=== PATIENT | male | born 1990 | race Caucasian/White ===

== ENCOUNTER 2016-09-16 16:32 | Outpatient (CLI) | END 2016-09-16 16:33 | disposition home or self-care (01) | LOC: LAB 16:32 | PROVIDERS: ATTEND Nurse Practitioner Family | DX: R30.9 Painful micturition, unspecified (principal) | CPT/HCPCS: 87800 ==

== ENCOUNTER 2017-01-31 21:02 | Emergency (ER) ==
[2017-01-31] MEDS ORDERED: EYE-STREAM OP STA (21:10)
[2017-01-31] MEDS ORDERED: TETRACAINE 0.5% UNIT-DOSE OP STA (21:10)
[2017-01-31] MEDS ORDERED: FLUORETS OP STA (21:10)
[2017-01-31 21:21] VITALS: BP 120/79; TEMP 98.6; BMI 19.6
--- NOTE | 2017-01-31 21:31 | ED.PDOC ---
General ED Provider: Dr. ALISHA FORD-ER Chief Complaint: Eye Problem Stated Complaint: i was cutting wood and i got something in my eye Time Seen by Physician: 21:29 Mode of Arrival: Walk-In Information Source: Patient Exam Limitations: No limitations Primary Care Provider: ALLISON SANCHEZ Nursing and Triage Documentation Reviewed and Agree: Yes EENT Complaint Exam - Eye Complaint/Exam Onset/Duration: 2hrs Symptoms Are: Still present Timing: Constant Initial Severity: Mild Current Severity: Mild Location: Left Character: Reports: Dull, Throbbing, Foreign body sensation Aggravating: Reports: Blinking Alleviating: Reports: None Associated Signs and Symptoms: Reports: Clear drainage. Denies: Photophobia, Purulent drainage, Vision impairment, Fever, Swelling Eye Surgical History: Reports: None Penetrating Injury Risk Factors: None Globe Rupture Risk Factors: None Acute Glaucoma Risk Factors: None Optic Artery Occlusion Risk Factors: None Visual Field: Normal Extraocular Movement: Normal Orbit Findings: Normal Globe Findings: Intact Lid Findings: Normal Conjunctival Findings: Red Corneal Findings: Clear Fluorescein Uptake: Yes Fundi: Normal Slit Lamp Used: No Differential Diagnoses: Corneal Abrasion, Foreign Body Review of Systems - Review Of Systems Constitutional: Reports: No symptoms Eyes: Reports: Drainage, Foreign body sensation, Inflammation, Pain Ears, Nose, Mouth, Throat: Reports: No symptoms Respiratory: Reports: No symptoms Cardiac: Reports: No symptoms GI: Reports: No symptoms : Reports: No symptoms Musculoskeletal: Reports: No symptoms Skin: Reports: No symptoms Neurological: Reports: No symptoms Endocrine: Reports: No symptoms Hematologic/Lymphatic: Reports: No symptoms All Other Systems: Reviewed and Negative Past Medical History - Past Medical History Previously Healthy: Yes Endocrine: Reports: Unknown Cardiovascular: Reports: Unknown Respiratory: Reports: Unknown Hematological: Reports: Unknown Gastrointestinal: Reports: Unknown Genitourinary: Reports: Unknown Neuro/Psych: Reports: Unknown Musculoskeletal: Reports: Unknown Cancer: Reports: Unknown - Surgical History General Surgical History: Reports: Unknown - Family History Family History: Reports: Unknown - Social History Smoking Status: Current every day smoker, Heavy tobacco smoker Hx Substance Use: No (smokes marijuane) Alcohol Screening: None - Immunizations Tetanus Shot up to Date: No (unknown) Physical Exam - Physical Exam Appearance: Well-appearing, No pain distress, Well-nourished Eyes: WALLACE, EOMI, Conjunctiva inflammed ENT: Ears normal Neck: Supple Respiratory: Airway patent Cardiovascular: RRR GI/: Soft, Nontender, No masses, Bowel sounds normal, No Organomegaly Musculoskeletal: Normal strength, ROM intact, No edema, No calf tenderness Skin: Warm, Dry, Normal color Neurological: Sensation intact Psychiatric: Affect appropriate, Mood appropriate Critical Care Note - Critical Care Note Total Time (mins): 0 Course - Course Orders, Labs, Meds: Orders Category Date Time Status Balanced Salt Solution [Eye-Stream] MEDS 01/31/17 21:10 Discontinued 1 bottle OP ONCE STA Fluorescein Sodium [Fluorets] MEDS 01/31/17 21:10 Discontinued 1 strip OP ONCE STA Tetracaine HCl/Pf [Tetracaine 0.5% Unit-Dose] MEDS 01/31/17 21:10 Discontinued 2 drop OP ONCE STA Medications Discontinued Medications Generic Name Dose Route Start Last Admin Trade Name Freq PRN Reason Stop Dose Admin Eye Irrigation Solution 1 bottle 01/31/17 21:10 Eye-Stream OP 01/31/17 21:11 ONCE STA Fluorescein Sodium 1 strip 01/31/17 21:10 Fluorets OP 01/31/17 21:11 ONCE STA Tetracaine HCl 2 drop 01/31/17 21:10 Tetracaine 0.5% Unit-Dose OP 01/31/17 21:11 ONCE STA Vital Signs: Temp Pulse Resp BP Pulse Ox 01/31/17 21:04 98.6 F 131 H 20 120/79 95 Departure - Departure Time of Disposition: 21:38 Disposition: HOME SELF-CARE Discharge Problem: Corneal abrasion Qualifiers: Encounter type: initial encounter Laterality: left Qualified Code(s): S05.02XA - Injury of conjunctiva and corneal abrasion without foreign body, left eye, initial encounter Instructions: Corneal Abrasion (ED) Condition: Good Pt referred to PMD for follow-up: Yes Additional Instructions: keep eye patched--norco 7.5mg q 4hrs prn pain #6--reapply ointment in am and reapply the patch--see eye doctor tomorrow as we discussed Allergies/Adverse Reactions: Allergies No Known Allergies Allergy (Verified 01/31/17 21:13) Home Medications: Ambulatory Orders Acyclovir 500 mg PO PRN PRN 09/16/16 Clonazepam [Klonopin] 1 mg PO BID PRN 09/16/16 Disposition Discussed With: Patient, Family
[2017-01-31] MEDS ORDERED: BLEPHAMIDE EYE OINTMENT OP STA (21:32)
== END 2017-01-31 21:55 | disposition home or self-care (01) ==
LOC: ED 21:02
DX: S05.02XA Injury of conjunctiva and corneal abrasion without foreign body, left eye, initial encounter (principal); F17.210 Nicotine dependence, cigarettes, uncomplicated; W22.8XXA Striking against or struck by other objects, initial encounter
CPT/HCPCS: 99283

== ENCOUNTER 2017-12-09 10:49 | Outpatient (CLI) | END 2017-12-09 10:50 | disposition home or self-care (01) | LOC: RHC-LAB 10:49 | PROVIDERS: ATTEND Nurse Practitioner Family | DX: Z11.3 Encounter for screening for infections with a predominantly sexual mode of transmission (principal) | CPT/HCPCS: 36415; 80053; 80074; 81001; 86592; 86631; 86695; 86696; 87389; 87800 ==

== ENCOUNTER 2018-07-21 16:27 | Outpatient (CLI) ==
[2018-05-02 22:32] VITALS: BMI 20.9
== END 2018-07-21 16:28 | disposition home or self-care (01) ==
LOC: RHC-LAB 16:27
PROVIDERS: ATTEND General Practice
DX: R05 Cough (principal)
CPT/HCPCS: 87502; 87651